=== PATIENT | female | born 2000 | race African-American/Black ===

== ENCOUNTER 2021-10-01 17:52 | Emergency (ER) | payer OTHER ==
[2021-10-01 18:21] LABS: Pregnancy Test - Urine (BHCG) Negative (Negative); Pregu Control Background? CLEAR/WHITE (CLR/WHITE); Pregu Control Bar Appear? YES (CONTROL BAR); Specific Gravity 1.015 (1.002-1.036)
== END 2021-10-01 18:56 ==
LOC: CSHERS 17:52
DX: R11.2 Nausea with vomiting, unspecified (principal)
CPT/HCPCS: 81025; 99284

== ENCOUNTER 2022-05-31 17:52 | Emergency (ER) | payer OTHER ==
[2022-05-31] MEDS ORDERED: Azithromycin 250 MG TAB ONE (18:22)
[2022-05-31] MEDS ORDERED: cefTRIAXone\\ROCEPHIN 500 MG VIAL ONE (18:22)
[2022-05-31 18:45] LABS: Bilirubin Neg (Negative); Blood, Urine 25 (Negative); Clarity Slightly Cloudy (Clear); Glucose, Urine (Dipstick) Normal (Negative); Ketone, Urine Negative (Negative); Leukocyte 500 (Negative); Nitrite Negative (Negative); Protein, Urine (Dipstick) 15 mg/dl (Neg-Trace); Specific Gravity, Urine 1.015 (1.005-1.030); Urobilinogen Normal mg/dL (Less than 2)
[2022-05-31 18:47] LABS: Pregnancy Test - Urine (BHCG) Negative (Negative)
[2022-05-31 18:48] LABS: Pregu Control Background? CLEAR/WHITE (CLR/WHITE); Pregu Control Bar Appear? YES (CONTROL BAR); Specific Gravity 1.015 (1.002-1.036)
[2022-05-31 18:54] LABS: RBC/HPF 0-3 HPF (0-3)
[2022-05-31 18:55] LABS: Bacteria/HPF 3+ HPF (None Seen); Yeast-Budding 1+ HPF (None Seen); Yeast-Hyphae 1+ HPF (None Seen)
[2022-06-01 15:37] LABS: Chlamydia by PCR Not Detected (NotDetected); GC by PCR Not Detected (NotDetected)
== END 2022-05-31 19:00 | disposition home or self-care (01) ==
LOC: CSHERS 17:52
DX: N89.8 Other specified noninflammatory disorders of vagina (principal)
CPT/HCPCS: 81003; 81015; 81025; 87086; 87480; 87491; 87510; 87591; 87660; 96372; 99283; J0696

== ENCOUNTER 2022-08-10 18:44 | Emergency (ER) | payer OTHER | END 2022-08-10 19:51 | disposition left against medical advice (07) | LOC: CSHERS 18:44 | DX: Z53.21 Procedure and treatment not carried out due to patient leaving prior to being seen by health care provider (principal) ==

== ENCOUNTER 2022-10-03 22:06 | Emergency (ER) | payer OTHER ==
[2022-10-03] MEDS ORDERED: Acetaminophen 325 MG TAB ONE (22:24)
== END 2022-10-03 22:43 | disposition home or self-care (01) ==
LOC: CSHERS 22:06
DX: M79.674 Pain in right toe(s) (principal)